=== PATIENT | male | born 1980 | race Caucasian/White ===

== ENCOUNTER 2022-01-16 08:38 | Day surgery (SDC) | payer OTHER ==
[~2022-01-16] VITALS: Ht 177.8 cm; Wt 81.6 kg
[~2022-01-16 08:38] MED LIST: CEFAZOLIN SOD 2 GM in D5W 50 ML IV ONE
[2022-01-16] MEDS ORDERED: HYDROmorphone 2 MG/ML VIAL IVP ONE (11:10)
[2022-01-16] MEDS ORDERED: DESFLURANE 15 MIN GAS INH ONE (11:10)
[2022-01-16] MEDS ORDERED: fentaNYL CITRATE/PF 100 MCG/2 ML AMP IVP ONE (11:10)
[2022-01-16] MEDS ORDERED: SUGAMMADEX SODIUM 200 MG/2 ML VIAL IV ONE (11:10)
[2022-01-16] MEDS ORDERED: LR 1,000 ML IV.SOLN IV ONE (11:10)
[2022-01-16] MEDS ORDERED: DEXAMETHASONE SOD PHOSPHATE 4 MG/ML VIAL IVP ONE (11:10)
[2022-01-16] MEDS ORDERED: ROCURONIUM BROMIDE 10 MG/ML (ZEMURON) IV ONE (11:10)
[2022-01-16] MEDS ORDERED: PROPOFOL 200MG/ 20ML VIAL (DIPRIVAN) IV ONE (11:10)
[2022-01-16] MEDS ORDERED: SUCCINYLCHOLINE CHLORIDE 20 MG/ML(QUELICIN) IVP ONE (11:10)
[2022-01-16] MEDS ORDERED: KETOROLAC TROMETHAMINE 30 MG VIAL IVP ONE (11:10)
[2022-01-16] MEDS ORDERED: NS IRRIG SOLN 1000 ML IR ONE (11:10)
[2022-01-16] MEDS ORDERED: ONDANSETRON HCL 4 MG/2 ML VIAL IVP ONE (11:10)
[2022-01-16] MEDS ORDERED: ONDANSETRON HCL 4 MG/2 ML VIAL IVP PRN (13:15)
[2022-01-16] MEDS ORDERED: HYDROmorphone 2 MG/ML VIAL IVP PRN (13:15)
[2022-01-16] MEDS ORDERED: HYDROmorphone 1 MG/ML INJ. CARTRIDGE IVP PRN ×2 (13:15)
[2022-01-16 17:47] VITALS: BP_SYST 131
== END 2022-01-16 16:30 | disposition home or self-care (01) ==
LOC: SDS 08:38 → SMU 08:40 → SDS 16:30
PROVIDERS: ATTEND Surgery
DX: K40.20 Bilateral inguinal hernia, without obstruction or gangrene, not specified as recurrent (principal); Z20.822 Contact with and (suspected) exposure to COVID-19
CPT/HCPCS: 36415; 87426; 49650; C1781; J3490; J0690; J1100; J1885; J2405; J2704; J0330; J3010; J1170; J7060; J7120; C1727